=== PATIENT | female | born 1955 | race Caucasian/White ===

== ENCOUNTER 2020-10-14 14:54 | Inpatient (IN) | payer MEDICARE, OTHER ==
[~2020-10-14] VITALS: Ht 160 cm; Wt 79.4 kg
--- NOTE | 2020-10-14 15:30 | NUR ---
DR. AMAYA AT BS FOR EVAL.
[2020-10-14] MEDS ORDERED: NITROGLYCERIN 0.4 MG/TAB BOTTLE SL ONE (16:00)
--- NOTE | 2020-10-14 16:03 | NUR ---
L sided chest pain worsening since this morning. PT AAOX4, VSS. PT ALSO C/O SOB, O2 SAT 96% RA. PLACED ON SUPERVISOR CABINETMAKER, SR. WILL CONT TO MONITOR.
[2020-10-14] MEDS ORDERED: NITROGLYCERIN 0.4 MG/TAB BOTTLE ONE (16:17)
[2020-10-14] MEDS ORDERED: ASPIRIN 325 MG TABLET ONE (16:17)
[2020-10-14 16:24] LABS: BASOPHILS # (AUTO) 0.1 /CMM (0.0-0.2); BASOPHILS % (AUTO) 1.2 % (0.0-2.0); EOSINOPHILS % (AUTO) 0.6 % (0.0-6.0); HEMATOCRIT 37 % (33-45); HEMOGLOBIN 12.4 g/dL (11.5-14.8); LYMPHOCYTES % (AUTO) 23.4 % (20.0-44.0); MEAN CORPUSCULAR HGB CONC 34 g/dl (31.0-36.0); MEAN CORPUSCULAR VOLUME 100 fL (82-100); MONOCYTES # (AUTO) 0.6 /CMM (0.1-1.30); NEUTROPHILS # (AUTO) 5.9 /CMM (1.8-8.9); NEUTROPHILS % (AUTO) 67.8 % (43.0-81.0); PLATELET COUNT (AUTO) 210 /CMM (150-450); RED BLOOD CELL COUNT(AUTO) 3.71 MIL/uL (4.0-5.2); WHITE BLOOD COUNT (AUTO) 8.6 K/uL (4.3-11.0)
[2020-10-14] MEDS ORDERED: ASPIRIN 325 MG TABLET PO ONE (16:30)
[2020-10-14 16:31] LABS: CALCIUM, SERUM 9.2 mg/dL (8.5-10.1); CARBON DIOXIDE 26 mmol/L (21-32); CHLORIDE 104 mmol/L (98-107); CREATININE 1.1 mg/dL (0.6-1.3); GLUCOSE 88 mg/dL (74-106); POTASSIUM 3.5 mmol/L (3.5-5.1); SODIUM SERUM 138 mmol/L (136-145); UREA NITROGEN, BLOOD 19 mg/dL (7-18)
[2020-10-14 16:44] LABS: ALANINE AMINOTRANSFERASE 33 U/L (12-78); ALBUMIN 3.5 g/dL (3.4-5.0); ALKALINE PHOSPHATASE 100 U/L (46-116); ASPARTATE AMINOTRANSFERASE 21 U/L (15-37); B-TYPE NATRIURETIC PEPTIDE 294 PG/ML (0-125); BILIRUBIN,DIRECT 0.1 mg/dL (0.0-0.2); BILIRUBIN,TOTAL 0.3 mg/dL (0.2-1.0)
--- NOTE | 2020-10-14 17:28 | NUR ---
[facility] CALLED E [employer]ER[employer] DEVELOPER PAGED.
[2020-10-14] MEDS ORDERED: ATOR40TA PO (17:38)
[2020-10-14] MEDS ORDERED: APIX5TAB PO (17:38)
[2020-10-14] MEDS ORDERED: BLOOD PRESSURE (17:38)
[2020-10-14] MEDS ORDERED: METO50TA16 PO (17:38)
[2020-10-14] MEDS ORDERED: IV NS 0.9% 250 ML IV ONE (17:46)
[2020-10-14] MEDS ORDERED: IOHEXOL-350 100 ML VIAL IV ONE (17:46)
[2020-10-14] MEDS ORDERED: MAG HYDROX/AL HYDROX/SIMETH 30 ML UDC PO PRN (19:00)
[2020-10-14] MEDS ORDERED: HYDROCODONE/APAP 5/325MG TABLET PO PRN (19:00)
[2020-10-14] MEDS ORDERED: ACETAMINOPHEN 325 MG TABLET PO PRN (19:00)
[2020-10-14] MEDS ORDERED: MAGNESIUM HYDROXIDE 30 ML UDC PO PRN (19:00)
[2020-10-14] MEDS ORDERED: MORPHINE SULFATE INJ 2 MG/ML DISP.SYRIN IV PRN (19:00)
[2020-10-14] MEDS ORDERED: Z GUARD REMEDY 2 OZ OINT TP PRN (19:00)
[2020-10-14] MEDS ORDERED: ONDANSETRON HCL/PF 4 MG/2 ML VIAL IVP PRN (19:00)
--- NOTE | 2020-10-14 19:18 | NUR ---
LAB CALED REGARDING NEGATIVE COVID RESULT.
[2020-10-14] MEDS ORDERED: NITROGLYCERIN PACKET 1 GM PACKET ONE (21:28)
[2020-10-14] MEDS: NITROGLYCERIN 30 GM TUBE TOP SCH (21:34)
[2020-10-14] MEDS ORDERED: ATORVASTATIN 40 MG TABLET ONE (22:22)
[2020-10-14] MEDS: ATORVASTATIN 40 MG TABLET PO SCH (22:25)
--- NOTE | 2020-10-14 23:02 | NUR ---
REPORT GIVEN TO JOSELIN DEE FOR [facility]
--- NOTE | 2020-10-14 23:03 | NUR ---
PT TRANSFERED PER ACLS PROTOCOL.
--- NOTE | 2020-10-14 23:15 | NUR ---
RN NOTES PT ARRIVED VIA GURNEY FROM ER. PT ALERT AND ORIENTED X4. PUPILS EQUAL REACTIVE TO LIGHT AND ACCOMMODATION. NO SIGNS OF RESPIRATORY DISTRESS OR PAIN OR DISCOMFORT REPORTED AT THIS TIME.ABLE TO MAKE NEEDS KNOWN. SKIN INTACT NO SIGNS OF DISCOLORATION NOTED AT THIS TIME. IV ACCESS RU FOREARM INTACT NO REDNESS OR SWELLING NOTED. NO EDEMA NOTED.PT IS ON ROOM AIR TOLERATING WELL. LUNG SOUNDS CLEAR UPON AUSCULTATION. ABDOMEN SOFT NON TENDER NON DISTENDED UPON PALPATION. BOWEL SOUNDS PRESENT IN ALL FOUR QUADRANT UPON AUSCULTATION. PT ORIENETED TO ROOM AND UNIT. CALL LIGHT WITHIN REACH. BED LOCKED AND LOWEST POSITION BILATERAL SIDE RAILS UP X2. SAFETY PRECAUTIONS FOLLOWED. WILL CONTINUE TO MONITOR
[2020-10-15] VITALS (7 sets, daily range): BP systolic 104–134; BP diastolic 61–86
[2020-10-15] MEDS ORDERED: NITROGLYCERIN PACKET 1 GM PACKET ONE (04:59)
[2020-10-15] MEDS: NITROGLYCERIN 30 GM TUBE TOP SCH ×3 (05:19→21:16)
[2020-10-15 06:39] LABS: BASOPHILS % (AUTO) 0.4 % (0.0-2.0); EOSINOPHILS % (AUTO) 1.9 % (0.0-6.0); HEMATOCRIT 35 % (33-45); HEMOGLOBIN 11.5 g/dL (11.5-14.8); LYMPHOCYTES # (AUTO) 2.3 /CMM (0.8-4.8); LYMPHOCYTES % (AUTO) 31.6 % (20.0-44.0); MEAN CORPUSCULAR HGB CONC 33 g/dl (31.0-36.0); MEAN CORPUSCULAR VOLUME 99 fL (82-100); MONOCYTES # (AUTO) 0.7 /CMM (0.1-1.30); MONOCYTES % (AUTO) 9.3 % (2.0-12.0); NEUTROPHILS # (AUTO) 4.1 /CMM (1.8-8.9); NEUTROPHILS % (AUTO) 56.8 % (43.0-81.0); PLATELET COUNT (AUTO) 199 /CMM (150-450); WHITE BLOOD COUNT (AUTO) 7.3 K/uL (4.3-11.0)
--- NOTE | 2020-10-15 06:52 | NUR ---
RN NOTES PT ALERT AND ORIENTED X4. PUPILS EQUAL REACTIVE TO LIGHT AND ACCOMMODATION. NO SIGNS OF RESPIRATORY DISTRESS OR PAIN OR DISCOMFORT REPORTED AT THIS TIME.ABLE TO MAKE NEEDS KNOWN. IV ACCESS R FOREARM INTACT NO REDNESS OR SWELLING NOTED.PT IS ON ROOM AIR TOLERATING WELL. CALL LIGHT WITHIN REACH. BED LOCKED AND LOWEST POSITION BILATERAL SIDE RAILS UP X2. SAFETY PRECAUTIONS FOLLOWED. WILL ENDORSE CARE TO DAY SHIFT NURSE.
[2020-10-15 07:22] LABS: CALCIUM, SERUM 8.6 mg/dL (8.5-10.1); CREATININE 0.7 mg/dL (0.6-1.3); MAGNESIUM 2.2 mg/dL (1.8-2.4); PHOSPHORUS 2.9 mg/dL (2.5-4.9); POTASSIUM 3.6 mmol/L (3.5-5.1)
--- NOTE | 2020-10-15 07:45 | NUR ---
RN Opening note Received patient in bed, able to responds all stimuli. Skin is warm to touch keep clean/dry intact IV site on right AC 18. Respiratory even and unlabored on room air O2sat 96%. Kept locked bed with elevated HOB for aspiration precaution and ensure airway and lowest bed foe safety. Call light within reach, will continue to monitor.
[2020-10-15] MEDS ORDERED: IV NS 0.9% 250 ML IV ONE (08:34)
[2020-10-15] MEDS ORDERED: IOHEXOL-350 100 ML VIAL IV ONE (08:34)
--- NOTE | 2020-10-15 08:56 | NUR ---
PT UNABLE TOLERATE LAYING DOWN. ATTEMPTED MULTIPLE TIMES TO HAVE PT LAY DOWN. PT DOES NOT WANT TO CONTINUE EXAM. PT'S RN ANN NOTIFIED AND WILL BE SPEAKING WITH ORDERING PHYSICIAN REGARDING PT'S CONDITION.
[2020-10-15] MEDS ORDERED: NITROGLYCERIN 0.4 MG/TAB BOTTLE SL ONE (09:00)
[2020-10-15] MEDS ORDERED: METOPROLOL TARTRATE INJ 5 MG/5 ML AMPUL IVP PRN (09:00)
[2020-10-15] MEDS ORDERED: IV NS 0.9% 500 ML IV PRN (09:00)
[2020-10-15] MEDS: POTASSIUM CHLORIDE 20 MEQ TAB.PRT.SR PO SCH ×3 (09:03→11:16)
[2020-10-15] MEDS: METOPROLOL TARTRATE 50 MG TABLET PO SCH ×2 (09:03→17:15)
[2020-10-15] MEDS: APIXABAN 5 MG TABLET PO SCH ×2 (09:05→17:17)
[2020-10-15 09:27] LABS: THYROID STIMULATING HORMONE 1.171 uIU/mL (0.358-3.74)
--- NOTE | 2020-10-15 10:00 | NUR ---
Patient refused CT angio this morning due to chest pain and unable to lay flat position. Received new order cancel CT angio and obtain cardiac procedure record from [facility] which patient done previously.
--- NOTE | 2020-10-15 11:00 | NUR ---
Obtained consent sign of authorization for use or disclosure of health information and faxed over to Office:Dr. Darius Hanson and [facility] to get medical record regarding cardiac procedure 2weeks ago. Waiting response.
[2020-10-15] MEDS: IV NS 0.9% 1,000 ML IV PRN (11:17)
--- NOTE | 2020-10-15 18:31 | NUR ---
RN closing Patient in bed resting, does no appears distress or discomfort. Skin is warm to touch, keep clean/dry, intact IV site on right AC 18g. Respiratory even and unlabored on room air O2sat 95%. Kept elevated HOB for ensure air way and aspiration precaution and lowest bed for safety. We still waiting response from Mel, call light within reach, will endorse hourly shift manager
[2020-10-15] MEDS: ATORVASTATIN 40 MG TABLET PO SCH (21:15)
[2020-10-16] VITALS: BP 130/79
[2020-10-16] MEDS: IV NS 0.9% 1,000 ML IV PRN (02:39)
[2020-10-16 04:40] VITALS: BP 132/71
[2020-10-16] MEDS: NITROGLYCERIN 30 GM TUBE TOP SCH (04:41)
--- NOTE | 2020-10-16 06:43 | NUR ---
[facility] [facility] CLOSING NOTES: PATIENT IN BED, AWAKE, A/O X4. NO S/S OF DISTRESS NOTED. CALL LIGHT WITHIN REACH. BED IN LOWEST AND LOCKED POSITION. AMBULATORY. NO COMPLAIN OF CHEST PAIN THROUGHOUT THE SHIFT.
[2020-10-16 06:46] LABS: BASOPHILS % (AUTO) 0.5 % (0.0-2.0); EOSINOPHILS % (AUTO) 3.2 % (0.0-6.0); HEMATOCRIT 34 % (33-45); HEMOGLOBIN 11.4 g/dL (11.5-14.8); LYMPHOCYTES # (AUTO) 2.4 /CMM (0.8-4.8); LYMPHOCYTES % (AUTO) 39.7 % (20.0-44.0); MEAN CORPUSCULAR HGB CONC 33 g/dl (31.0-36.0); MEAN CORPUSCULAR VOLUME 99 fL (82-100); MONOCYTES # (AUTO) 0.5 /CMM (0.1-1.30); MONOCYTES % (AUTO) 8.6 % (2.0-12.0); NEUTROPHILS # (AUTO) 2.9 /CMM (1.8-8.9); PLATELET COUNT (AUTO) 190 /CMM (150-450); RED BLOOD CELL COUNT(AUTO) 3.47 MIL/uL (4.0-5.2)
[2020-10-16 07:31] LABS: ALBUMIN 2.8 g/dL (3.4-5.0); BILIRUBIN,TOTAL 0.3 mg/dL (0.2-1.0); CALCIUM, SERUM 8.3 mg/dL (8.5-10.1); CREATININE 0.7 mg/dL (0.6-1.3); MAGNESIUM 2.1 mg/dL (1.8-2.4); PHOSPHORUS 2.8 mg/dL (2.5-4.9); POTASSIUM 3.9 mmol/L (3.5-5.1); TOTAL PROTEIN, SERUM 6.8 g/dL (6.4-8.2)
[2020-10-16 08:00] VITALS: BP 125/76
--- NOTE | 2020-10-16 08:02 | NUR ---
CLEAN ENERGY POLICY ANALYST OPENING NOTE PATIENT IS IN BED RESTING. PATIENT IS IN NO ACUTE DISTRESS. NO SOB NOTED. PATIENT IS ON ROOM AIR. PATIENT IS ON TELE MONITOR READING SB 58. SAFETY PRECAUTIONS ARE IN PLACE. BED IS LOCKED AND IN THE LOWEST POSITION. SIDE RAILS ARE ON, CALL LIGHT WITHIN REACH. WILL CONTINUE TO MONITOR THROUGH OUT THE SHIFT.
[2020-10-16 09:28] VITALS: BP 125/76
[2020-10-16] MEDS: METOPROLOL TARTRATE 50 MG TABLET PO SCH (09:28)
[2020-10-16] MEDS: APIXABAN 5 MG TABLET PO SCH (09:39)
[2020-10-16] MEDS ORDERED: NITR0.4T48 SL (09:47)
--- NOTE | 2020-10-16 11:43 | NUR ---
DOCTOR OF NURSE ANESTHESIATOE PULLER NOTE PATIENT IS IN NO ACUTE DISTRESS. PATIENT IS BREATHING EVEN AND UNLABORED. NO SOB NOTED. PATIENT IS MEDICALLY STABLE FOR DISCHARGE. DISCHARGE INSTRUCTIONS PROVIDED. PATIENT VERBALIZED UNDERSTANDING. SKIN ASSESSED, NO SKIN BREAK DOWN NOTED. PATIENT HAS HER BELONGINGS WITH HER. BELONGINGS LIST SIGNED. PATIENT KEPT CLEAN, DRY AND COMFORTABLE THOUGH OUT MY SHIFT. PATIENTS NEEDS ASSESSED. PATIENTS IV LINE AND ID BAND REMOVED. PATIENT LEFT VIA PRIVATE CAR, PICKED UP BY HER DAUGHTER.
== END 2020-10-16 11:45 | disposition home or self-care (01) | DRG 302 ==
LOC: ER 15:01 → TRANSITION 20:35 → TELE 23:22
PROVIDERS: ADMIT Internal Medicine; ATTEND Internal Medicine
DX: I25.118 Atherosclerotic heart disease of native coronary artery with other forms of angina pectoris (principal); N17.0 Acute kidney failure with tubular necrosis; I10 Essential (primary) hypertension; Z79.01 Long term (current) use of anticoagulants; D64.9 Anemia, unspecified; Z20.822 Contact with and (suspected) exposure to COVID-19; Z95.5 Presence of coronary angioplasty implant and graft
CPT/HCPCS: 36415; 71045-TC; 80048-TC; 80053-TC; 80061-TC; 80076-TC; 82728-TC; 83540-TC; 83735-TC; 83880; 84100-TC; 84439-TC; 84443-TC; 84484-TC; 85025-TC; 85378-TC; 87081-TC; 93307-TC; 93970-TC; C9803; G0378; J7030; J7050; Q9967

== ENCOUNTER 2021-07-25 19:19 | Emergency (ER) | payer MEDICARE, OTHER ==
[~2021-07-25] VITALS: Ht 167.6 cm; Wt 61.2 kg
[~2021-07-25 19:19] MED LIST: APIX5TAB PO; ATOR40TA PO; BLOOD PRESSURE; METO50TA16 PO
--- NOTE | 2021-07-25 20:05 | NUR ---
pt bibself c/o left ankle pain s/p mech fall. pt aaox4 breathing evenly and unlabored. pt attached to monitor and pox. Upon assessment, pt does have swelling and pain in left ankle. Pt given blanket and call light within reach
--- NOTE | 2021-07-25 21:29 | NUR ---
CALLED JOANNE FOR FOLLOWUP ON READ
[2021-07-25] MEDS ORDERED: IBUP-1955 PO (21:46)
[2021-07-25] MEDS ORDERED: IBUPROFEN 600 MG TABLET ONE (21:57)
[2021-07-25] MEDS: IBUPROFEN 600 MG TABLET PO ONE (22:01)
--- NOTE | 2021-07-25 22:01 | NUR ---
EMT AT BEDSIDE FOR SPLINT
--- NOTE | 2021-07-25 22:02 | NUR ---
Patient discharged to home in stable condition. Written and verbal after care instructions given. Patient verbalizes understanding of instruction. Pt ambulatory with a steady gait after crutches teaching.
[2021-07-25 22:06] VITALS: BP 165/78
== END 2021-07-25 22:00 | disposition home or self-care (01) ==
LOC: ER 19:23
DX: S92.352A Displaced fracture of fifth metatarsal bone, left foot, initial encounter for closed fracture (principal); S90.02XA Contusion of left ankle, initial encounter; I10 Essential (primary) hypertension; E78.5 Hyperlipidemia, unspecified; I25.10 Atherosclerotic heart disease of native coronary artery without angina pectoris; Z98.890 Other specified postprocedural states; Z79.899 Other long term (current) drug therapy; W18.39XA Other fall on same level, initial encounter; Y93.89 Activity, other specified; Y92.89 Other specified places as the place of occurrence of the external cause; Y99.8 Other external cause status
CPT/HCPCS: 73610-TC; 73630-TC